=== PATIENT | male | born 1945 | race Caucasian/White ===

== ENCOUNTER 2020-04-20 06:49 | Outpatient (CLI) | payer MEDICARE, BC ==
[2020-04-21 09:25] LABS: SARS-CoV-2 MS2 Positive; SARS-CoV-2 N Gene Negative; SARS-CoV-2 S Gene Negative; SARS-CoV-2 by NAA Not Detected (NotDetected); SARS-CoV-2 orf1ab Negative
== END 2020-04-20 06:50 | disposition home or self-care (01) ==
LOC: LABBT 06:49
PROVIDERS: ATTEND Ophthalmology Retina Specialist
DX: Z01.812 Encounter for preprocedural laboratory examination (principal); Z20.828 Contact with and (suspected) exposure to other viral communicable diseases
CPT/HCPCS: 87635; U0003

== ENCOUNTER 2020-04-23 07:16 | Day surgery (SDC) | payer MEDICARE, BC ==
[2020-04-22 12:33] VITALS: BMI 28.2
[2020-04-23] MEDS ORDERED: Cyclopentolate 1% Opth Drop 2 ML BOT ONE (07:43)
[2020-04-23] MEDS ORDERED: Phenylephrine 2.5% Ophth Soln 5 ML BOT ONE (07:43)
[2020-04-23] MEDS ORDERED: Bupivacaine PF 0.75% SDV 10 ML ONE (09:20)
[2020-04-23] MEDS ORDERED: Lidocaine 4% PF 5 ML AMP ONE (09:20)
[2020-04-23] MEDS ORDERED: Triamcinolone 40 MG/ML VIAL ONE (09:20)
[2020-04-23] MEDS ORDERED: CEFAZOLIN 1 GM VIAL ONE (09:20)
[2020-04-23] MEDS ORDERED: Maxitrol 0.1% Opth Oint 3.5 GM TUBE ONE (09:20)
[2020-04-23] MEDS ORDERED: PROPOFOL 200 MG/20 ML VIAL ONE (09:20)
[2020-04-23] MEDS ORDERED: Lidocaine 1% PF 5 ML VIAL ONE (09:20)
[2020-04-23] MEDS ORDERED: Midazolam HCl 2 mg/2 ml Vial ONE (09:22)
[2020-04-23] MEDS ORDERED: Fentanyl 100 MCG/2 ML VIAL ONE (09:22)
--- NOTE | 2020-04-24 13:48 | OP ---
DATE OF PROCEDURE: 04/23/2020 PREOPERATIVE DIAGNOSES: 1. Glaucoma, right eye. 2. Central retinal vein occlusion, right eye. PROCEDURES PERFORMED: Tube shunt, scleral patch graft, pars plana vitrectomy, panretinal photocoagulation, all right eye. ANESTHESIA: Local with monitored anesthesia care. DESCRIPTION OF PROCEDURE: The patient was identified in the preoperative holding area. Appropriate informed consent for the planned surgical procedure on the right eye had been obtained. The patient was transported to the operative suite and appropriate cardiopulmonary monitoring was established. Local anesthesia was obtained using retrobulbar modified Van Lint lid block using 50:50 mixture of 4% lidocaine and 0.75% bupivacaine. The patient was prepped and draped in usual sterile manner for ophthalmic surgery on the right eye. Lid speculum was placed in the right eye. A 25-gauge trocar was placed in conjunctiva and sclera superotemporally, inferotemporally, and supranasally. An FP7 tube shunt was placed supratemporally and fixated in place 14 mm posterior to the limbus using 5-0 Mersilene suture. Light pipe vitreous cutter was inserted into the eye. Core vitrectomy was performed. Posterior hyaloid face was elevated and peeled into the periphery. Panretinal photocoagulation was placed into all non-macular areas of the retina. The tube was introduced into the sclerotomy site 5 mm posterior to the limbus superotemporally and fixated in place with 7-0 Vicryl suture. Tutoplast graft was placed over the tube insertion site. Tube was noted to be draining well. Conjunctiva was closed with 6-0 plain gut suture. Retrobulbar Kenalog sequential Ancef was placed. Antibiotic ointment was placed. Eye was patched and shielded. The patient was taken to postop recovery unit in good condition having suffered no immediate perioperative complication. The patient was instructed to keep patch shield on, avoid lifting or bending. Followup appointment with Dr. Camara. Job ID: [id number]
== END 2020-04-23 11:09 | disposition home or self-care (01) ==
LOC: SDC 07:16
PROVIDERS: ATTEND Ophthalmology Retina Specialist
PROC: 08T43ZZ Resection of Right Vitreous, Percutaneous Approach (ICD-10-PCS; principal; 2020-04-23)
PROC: 08QE3ZZ Repair Right Retina, Percutaneous Approach (ICD-10-PCS; 2020-04-23)
PROC: 08123J4 Bypass Right Anterior Chamber to Sclera with Synthetic Substitute, Percutaneous Approach (ICD-10-PCS; 2020-04-23)
DX: H40.2210 Chronic angle-closure glaucoma, right eye, stage unspecified (principal); H43.11 Vitreous hemorrhage, right eye; E78.5 Hyperlipidemia, unspecified; I25.10 Atherosclerotic heart disease of native coronary artery without angina pectoris; I48.91 Unspecified atrial fibrillation; Z79.01 Long term (current) use of anticoagulants; Z79.84 Long term (current) use of oral hypoglycemic drugs; Z79.899 Other long term (current) drug therapy; Z86.73 Personal history of transient ischemic attack (TIA), and cerebral infarction without residual deficits; Z91.012 Allergy to eggs; Z95.1 Presence of aortocoronary bypass graft
CPT/HCPCS: 66180; 67040; L8612; J0690; J2001; J2250; J2704; J3010; J3301; J3490

== ENCOUNTER 2020-10-21 17:47 | Inpatient (IN) | payer MEDICARE, BC ==
[2020-10-21 20:08] VITALS: BMI 26.2
[2020-10-21] MEDS ORDERED: Dextrose 5% in Water 1,000 ML IV PRN (21:02)
[2020-10-21] MEDS ORDERED: hydrALAZINE 20 MG/ML VIAL SLOW IVP PRN (21:02)
[2020-10-21] MEDS ORDERED: Morphine 2 MG/ML VIAL SLOW IVP PRN (21:02)
[2020-10-21] MEDS ORDERED: Ondansetron PF 4 MG/2 ML Vial IVP PRN (21:02)
[2020-10-21] MEDS ORDERED: Dextrose 50% Abboject 50 ML SYRINGE SLOW IVP PRN (21:02)
[2020-10-21] MEDS ORDERED: Insulin Regular 300 UNITS/3 ML VIAL SC PRN (21:02)
[2020-10-21 21:20] LABS: #Lymphocytes 1.1 thou/uL (1.20-3.40); #Monocytes 0.7 thou/uL (0.11-0.59); #Neutrophils 13.5 thou/uL (1.40-6.50); %Eosinophils 0.3 % (0.0-10.0); %Lymphocytes 7.4 % (21.0-51.0); %Monocytes 4.6 % (0.0-10.0); %Neutrophils 87.7 % (42.0-75.0); Hemoglobin 14.1 g/dL (14.0-18.0); Mean Corpuscular Hemoglobin 30.9 pg (27.0-31.0); Mean Platelet Volume 7.6 fL (7.4-10.4); Platelet Count 308 thou/uL (130-400); RBC Distribution Width 12.6 % (11.5-14.5); Red Blood Cell (RBC) Count 4.55 mill/uL (4.70-6.10); White Blood Cell (WBC) Count 15.4 thou/uL (4.8-10.8)
[2020-10-21 21:42] LABS: ALT (SGPT) 26 U/L (8-55); AST (SGOT) 30 U/L (5-34); Albumin 3.9 g/dL (3.4-4.8); Alkaline Phosphatase 117 U/L (40-110); Anion Gap 15 mmol/L (10-20); BUN (Urea Nitrogen) 24 mg/dL (8.4-25.7); Bilirubin, Direct 0.5 mg/dL (0.1-0.3); Bilirubin, Total 1.1 mg/dL (0.2-1.2); Calc. Creatinine Clearance 72 mL/min (70-130); Calcium 9.2 mg/dL (7.8-10.44); Carbon Dioxide 24 mmol/L (23-31); Chloride 105 mmol/L (98-107); Glucose 201 mg/dL (83-110); Magnesium 2.1 mg/dL (1.6-2.6); Phosphorus 3.7 mg/dL (2.3-4.7); Potassium 4.7 mmol/L (3.5-5.1); Protein, Total 7.7 g/dL (5.8-8.1); Sodium 139 mmol/L (136-145)
[2020-10-21] MEDS: Gabapentin 300 MG CAP PO SCH (22:20)
[2020-10-21] MEDS: Docusate 100 MG CAP PO SCH (22:20)
[2020-10-21] MEDS: Atorvastatin Calcium 40 MG TAB PO SCH (22:20)
[2020-10-21] MEDS: Folic Acid 1 MG TAB PO SCH (22:20)
[2020-10-21] MEDS: Carvedilol 3.125 MG TAB PO SCH (22:20)
[2020-10-21] MEDS: HumaLOG 300 UNITS/3 ML VIAL SC PRN (23:59)
[2020-10-22] MEDS: Lactated Ringer's 1,000 ML IV SCH (00:05)
[2020-10-22 00:09] LABS: Bacteria/HPF None Seen HPF (None Seen); Bilirubin Negative (Negative); Blood, Urine Negative (Negative); Clarity Clear (Clear); Glucose, Urine (Dipstick) Greater than 1000 mg/dL (Negative); Ketone, Urine 20 mg/dL (Negative); Leukocyte Negative Leu/uL (Negative); Nitrite Negative (Negative); Protein, Urine (Dipstick) 10 mg/dL (Neg-Trace); RBC/HPF None Seen HPF (0-3); Specific Gravity, Urine 1.029 (1.002-1.036); Squamous Epithelial None Seen HPF (0-3); Urobilinogen Normal mg/dL (Less than 2); WBC/HPF 0-3 HPF (0-3)
[2020-10-22 00:20] LABS: Urine Culture Reflex No No
[2020-10-22 01:08] LABS: SARS-CoV-2 PCR by NAA Not Detected (NotDetected)
[2020-10-22] MEDS ORDERED: Morphine 4 MG/ML VIAL SLOW IVP PRN ×2 (05:17→18:22)
[2020-10-22 06:36] LABS: #Eosinphils 0.1 thou/uL (0.0-0.7); #Lymphocytes 1.8 thou/uL (1.20-3.40); #Neutrophils 9.4 thou/uL (1.40-6.50); %Basophils 0.4 % (0.0-1.0); %Eosinophils 0.7 % (0.0-10.0); %Lymphocytes 14.3 % (21.0-51.0); %Neutrophils 76.6 % (42.0-75.0); Mean Corpuscular HGB CONC 32.5 g/dL (32.0-36.0); Mean Corpuscular Hemoglobin 29.5 pg (27.0-31.0); Mean Corpuscular Volume 90.8 fL (78.0-98.0); Mean Platelet Volume 8.1 fL (7.4-10.4); Platelet Count 318 thou/uL (130-400); RBC Distribution Width 12.7 % (11.5-14.5); Red Blood Cell (RBC) Count 4.41 mill/uL (4.70-6.10); White Blood Cell (WBC) Count 12.3 thou/uL (4.8-10.8)
[2020-10-22] MEDS ORDERED: Empagliflozin 10 MG TAB PO SCH (09:00)
[2020-10-22] MEDS: Carvedilol 3.125 MG TAB PO SCH (09:56)
[2020-10-22] MEDS: Docusate 100 MG CAP PO SCH ×2 (09:58→21:57)
[2020-10-22] MEDS: Famotidine/PF 20 mg/2ml Vial SLOW IVP SCH ×2 (09:59→21:24)
[2020-10-22] MEDS: Gabapentin 300 MG CAP PO SCH ×3 (09:59→21:11)
[2020-10-22] MEDS: Multivit, Therapeutic 1 TAB PO SCH (10:01)
[2020-10-22] MEDS: Polyethylene Glycol 3350 17 GM Packet PO SCH ×2 (10:01→10:40)
[2020-10-22] MEDS: Senokot S 8.6-50 MG TAB PO SCH ×3 (10:02→21:57)
[2020-10-22] MEDS ORDERED: CEFAZOLIN 2 GM in Premix Bag 1 BAG IVPB SCH (10:45)
[2020-10-22] MEDS ORDERED: Melatonin 3 MG TAB PO PRN (18:15)
[2020-10-22] MEDS ORDERED: traMADol HCl 50 MG TAB PO PRN (19:49)
[2020-10-22] MEDS: Cholecalciferol 1,000 UNITS (25 MCG) TAB PO SCH (21:10)
[2020-10-22] MEDS: Folic Acid 1 MG TAB PO SCH (21:11)
[2020-10-22] MEDS: Atorvastatin Calcium 40 MG TAB PO SCH (21:11)
[2020-10-22] MEDS: Ibuprofen 200 MG TAB PO SCH (21:11)
[2020-10-22] MEDS: Latanoprost 0.005% Ophth Soln 2.5 ml Bottle EA EYE SCH (21:12)
[2020-10-22] MEDS: traMADol HCl 50 MG TAB PO SCH (21:12)
[2020-10-23] MEDS: Acetaminophen 325 MG TAB PO SCH ×4 (01:01→18:25)
[2020-10-23] MEDS: traMADol HCl 50 MG TAB PO SCH ×4 (03:44→20:54)
[2020-10-23] MEDS: Lactated Ringer's 1,000 ML IV SCH (05:39)
[2020-10-23] MEDS: Ibuprofen 200 MG TAB PO SCH ×3 (05:39→20:57)
[2020-10-23 07:23] LABS: #Basophils 0.1 thou/uL (0.0-0.2); #Eosinphils 0.4 thou/uL (0.0-0.7); #Lymphocytes 2.1 thou/uL (1.20-3.40); #Monocytes 1.1 thou/uL (0.11-0.59); #Neutrophils 9.7 thou/uL (1.40-6.50); %Basophils 0.5 % (0.0-1.0); %Lymphocytes 15.7 % (21.0-51.0); %Monocytes 8.2 % (0.0-10.0); %Neutrophils 72.7 % (42.0-75.0); Hemoglobin 11.7 g/dL (14.0-18.0); Mean Corpuscular HGB CONC 33.9 g/dL (32.0-36.0); Mean Corpuscular Hemoglobin 30.7 pg (27.0-31.0); Mean Corpuscular Volume 90.7 fL (78.0-98.0); Mean Platelet Volume 7.9 fL (7.4-10.4); Platelet Count 257 thou/uL (130-400); RBC Distribution Width 12.5 % (11.5-14.5); Red Blood Cell (RBC) Count 3.79 mill/uL (4.70-6.10); White Blood Cell (WBC) Count 13.3 thou/uL (4.8-10.8)
[2020-10-23] MEDS ORDERED: Fentanyl 100 MCG/2 ML VIAL ONE ×2 (07:24→09:45)
[2020-10-23 07:44] LABS: Anion Gap 13 mmol/L (10-20); BUN (Urea Nitrogen) 31 mg/dL (8.4-25.7); Calc. Creatinine Clearance 74 mL/min (70-130); Calcium 8.6 mg/dL (7.8-10.44); Carbon Dioxide 24 mmol/L (23-31); Chloride 106 mmol/L (98-107); Glucose 108 mg/dL (83-110); Potassium 4.1 mmol/L (3.5-5.1); Sodium 139 mmol/L (136-145)
[2020-10-23] MEDS: Loratadine 10 MG TAB PO SCH (08:42)
[2020-10-23] MEDS: Senokot S 8.6-50 MG TAB PO SCH ×2 (08:42→20:55)
[2020-10-23] MEDS: Docusate 100 MG CAP PO SCH ×2 (08:42→20:55)
[2020-10-23] MEDS: Gabapentin 300 MG CAP PO SCH ×3 (08:42→20:56)
[2020-10-23] MEDS: Famotidine/PF 20 mg/2ml Vial SLOW IVP SCH ×2 (08:42→20:56)
[2020-10-23] MEDS: Polyethylene Glycol 3350 17 GM Packet PO SCH (08:42)
[2020-10-23] MEDS: Multivit, Therapeutic 1 TAB PO SCH (08:42)
[2020-10-23] MEDS ORDERED: Promethazine HCl 25 MG/ML VIAL IM PRN (10:14)
[2020-10-23] MEDS ORDERED: Promethazine HCl 25 MG/ML VIAL SLOW IVP PRN (10:14)
[2020-10-23] MEDS ORDERED: Ondansetron HCl/PF 4 MG/2 ML Vial IVP PRN (10:14)
[2020-10-23] MEDS: CEFAZOLIN 2 GM in Premix Bag 1 BAG IVPB SCH (18:26)
[2020-10-23] MEDS: HumaLOG 300 UNITS/3 ML VIAL SC PRN ×2 (18:38→21:18)
[2020-10-23] MEDS: Cholecalciferol 1,000 UNITS (25 MCG) TAB PO SCH (20:55)
[2020-10-23] MEDS: Latanoprost 0.005% Ophth Soln 2.5 ml Bottle EA EYE SCH (20:55)
[2020-10-23] MEDS: Atorvastatin Calcium 40 MG TAB PO SCH (20:55)
[2020-10-23] MEDS: Folic Acid 1 MG TAB PO SCH (20:56)
[2020-10-23] MEDS: Carvedilol 3.125 MG TAB PO SCH (20:59)
[2020-10-24] MEDS: Acetaminophen 325 MG TAB PO SCH ×5 (00:23→23:29)
[2020-10-24] MEDS: Lactated Ringer's 1,000 ML IV SCH (02:26)
[2020-10-24] MEDS: CEFAZOLIN 2 GM in Premix Bag 1 BAG IVPB SCH ×2 (02:26→11:43)
[2020-10-24] MEDS: traMADol HCl 50 MG TAB PO SCH ×4 (02:27→19:51)
[2020-10-24] MEDS: HumaLOG 300 UNITS/3 ML VIAL SC PRN ×3 (06:16→16:20)
[2020-10-24] MEDS: Ibuprofen 200 MG TAB PO SCH ×3 (06:16→19:52)
[2020-10-24] MEDS: Multivit, Therapeutic 1 TAB PO SCH (09:51)
[2020-10-24] MEDS: Senokot S 8.6-50 MG TAB PO SCH ×2 (09:51→19:50)
[2020-10-24] MEDS: Carvedilol 3.125 MG TAB PO SCH ×2 (09:51→19:49)
[2020-10-24] MEDS: Famotidine/PF 20 mg/2ml Vial SLOW IVP SCH ×2 (09:52→19:52)
[2020-10-24] MEDS: Loratadine 10 MG TAB PO SCH (09:52)
[2020-10-24] MEDS: Polyethylene Glycol 3350 17 GM Packet PO SCH (09:52)
[2020-10-24] MEDS: Docusate 100 MG CAP PO SCH ×2 (09:52→19:50)
[2020-10-24] MEDS: Gabapentin 300 MG CAP PO SCH ×3 (09:52→19:51)
[2020-10-24 10:52] LABS: #Basophils 0.1 thou/uL (0.0-0.2); #Eosinphils 0.3 thou/uL (0.0-0.7); #Lymphocytes 2.8 thou/uL (1.20-3.40); #Monocytes 1.1 thou/uL (0.11-0.59); #Neutrophils 10.4 thou/uL (1.40-6.50); %Basophils 0.4 % (0.0-1.0); %Eosinophils 1.8 % (0.0-10.0); %Lymphocytes 19.1 % (21.0-51.0); %Monocytes 7.6 % (0.0-10.0); %Neutrophils 71.1 % (42.0-75.0); Hemoglobin 10.4 g/dL (14.0-18.0); Mean Corpuscular HGB CONC 33.4 g/dL (32.0-36.0); Mean Corpuscular Hemoglobin 30.3 pg (27.0-31.0); Mean Corpuscular Volume 90.7 fL (78.0-98.0); Mean Platelet Volume 8.1 fL (7.4-10.4); Platelet Count 279 thou/uL (130-400); RBC Distribution Width 12.5 % (11.5-14.5); Red Blood Cell (RBC) Count 3.43 mill/uL (4.70-6.10); White Blood Cell (WBC) Count 14.6 thou/uL (4.8-10.8)
[2020-10-24 15:45] LABS: Anion Gap 15 mmol/L (10-20); BUN (Urea Nitrogen) 40 mg/dL (8.4-25.7); Calc. Creatinine Clearance 58 mL/min (70-130); Calcium 8.6 mg/dL (7.8-10.44); Carbon Dioxide 23 mmol/L (23-31); Chloride 104 mmol/L (98-107); Glucose 176 mg/dL (83-110); Magnesium 2.2 mg/dL (1.6-2.6); Phosphorus 3.2 mg/dL (2.3-4.7); Sodium 138 mmol/L (136-145)
[2020-10-24] MEDS: Folic Acid 1 MG TAB PO SCH (19:51)
[2020-10-24] MEDS: Cholecalciferol 1,000 UNITS (25 MCG) TAB PO SCH (19:51)
[2020-10-24] MEDS: Atorvastatin Calcium 40 MG TAB PO SCH (19:51)
[2020-10-24] MEDS: Latanoprost 0.005% Ophth Soln 2.5 ml Bottle EA EYE SCH (19:52)
[2020-10-25] MEDS: traMADol HCl 50 MG TAB PO SCH ×3 (03:34→14:28)
[2020-10-25] MEDS: Acetaminophen 325 MG TAB PO SCH ×3 (06:17→17:32)
[2020-10-25] MEDS: Ibuprofen 200 MG TAB PO SCH ×3 (06:18→21:42)
[2020-10-25] MEDS: Polyethylene Glycol 3350 17 GM Packet PO SCH (08:31)
[2020-10-25] MEDS: Senokot S 8.6-50 MG TAB PO SCH ×2 (08:32→20:10)
[2020-10-25] MEDS: Docusate 100 MG CAP PO SCH ×2 (08:32→20:09)
[2020-10-25] MEDS: Gabapentin 300 MG CAP PO SCH ×2 (08:33→14:27)
[2020-10-25] MEDS: Loratadine 10 MG TAB PO SCH (08:33)
[2020-10-25] MEDS: Multivit, Therapeutic 1 TAB PO SCH (08:33)
[2020-10-25] MEDS: Famotidine/PF 20 mg/2ml Vial SLOW IVP SCH ×2 (08:33→20:11)
[2020-10-25] MEDS: Carvedilol 3.125 MG TAB PO SCH ×2 (08:35→20:13)
[2020-10-25] MEDS: HumaLOG 300 UNITS/3 ML VIAL SC PRN ×2 (12:30→17:31)
[2020-10-25] MEDS ORDERED: RisperDAL M-TAB 1 MG TAB SL SCH (18:45)
[2020-10-25] MEDS: Apixaban 5 MG TAB PO SCH (20:09)
[2020-10-25] MEDS: Folic Acid 1 MG TAB PO SCH (20:10)
[2020-10-25] MEDS: Atorvastatin Calcium 40 MG TAB PO SCH (20:10)
[2020-10-25] MEDS: Cholecalciferol 1,000 UNITS (25 MCG) TAB PO SCH (20:12)
[2020-10-25] MEDS: Latanoprost 0.005% Ophth Soln 2.5 ml Bottle EA EYE SCH (20:17)
[2020-10-25] MEDS ORDERED: Hydrocortisone Sod Succ/PF 100 mg/2 ml Vial IVP SCH (21:15)
[2020-10-25] MEDS ORDERED: Tamsulosin HCl 0.4 MG CAP PO SCH (22:15)
[2020-10-26] MEDS: Acetaminophen 325 MG TAB PO SCH ×4 (00:19→18:08)
[2020-10-26] MEDS: Hydrocortisone Sod Succ/PF 100 mg/2 ml Vial IVP SCH ×3 (02:48→15:10)
[2020-10-26] MEDS: Ibuprofen 200 MG TAB PO SCH ×2 (04:57→14:57)
[2020-10-26] MEDS: HumaLOG 300 UNITS/3 ML VIAL SC PRN ×2 (05:13→15:06)
[2020-10-26 05:19] LABS: Hemoglobin 10.8 g/dL (14.0-18.0); Platelet Count 256 thou/uL (130-400)
[2020-10-26] MEDS ORDERED: Clopidogrel Bisulfate 75 MG TAB PO SCH (09:00)
[2020-10-26] MEDS: Polyethylene Glycol 3350 17 GM Packet PO SCH (09:14)
[2020-10-26] MEDS: Senokot S 8.6-50 MG TAB PO SCH (09:15)
[2020-10-26] MEDS: Multivit, Therapeutic 1 TAB PO SCH (09:15)
[2020-10-26] MEDS: Carvedilol 3.125 MG TAB PO SCH (09:15)
[2020-10-26] MEDS: Loratadine 10 MG TAB PO SCH (09:15)
[2020-10-26] MEDS: Docusate 100 MG CAP PO SCH (09:15)
[2020-10-26] MEDS: Apixaban 5 MG TAB PO SCH (09:15)
[2020-10-26 16:05] VITALS: BP 138/72; TEMP 97.9
[2020-10-26] MEDS ORDERED: Tamsulosin HCl 0.4 MG CAP PO SCH (21:00)
== END 2020-10-26 18:14 | DRG 481 ==
LOC: SURG A 17:47
PROVIDERS: ADMIT Surgery; ATTEND Surgery
PROC: 0QH704Z Insertion of Internal Fixation Device into Left Upper Femur, Open Approach (ICD-10-PCS; principal; 2020-10-23)
DX: S72.22XA Displaced subtrochanteric fracture of left femur, initial encounter for closed fracture (principal); F05 Delirium due to known physiological condition; Z20.822 Contact with and (suspected) exposure to COVID-19; Z23 Encounter for immunization; E11.621 Type 2 diabetes mellitus with foot ulcer; L97.529 Non-pressure chronic ulcer of other part of left foot with unspecified severity; I25.10 Atherosclerotic heart disease of native coronary artery without angina pectoris; E11.51 Type 2 diabetes mellitus with diabetic peripheral angiopathy without gangrene; E11.319 Type 2 diabetes mellitus with unspecified diabetic retinopathy without macular edema; I48.0 Paroxysmal atrial fibrillation; I95.89 Other hypotension; W18.09XA Striking against other object with subsequent fall, initial encounter; Y92.009 Unspecified place in unspecified non-institutional (private) residence as the place of occurrence of the external cause; Z95.1 Presence of aortocoronary bypass graft; Z95.820 Peripheral vascular angioplasty status with implants and grafts; Z86.73 Personal history of transient ischemic attack (TIA), and cerebral infarction without residual deficits; Z79.899 Other long term (current) drug therapy; Z79.02 Long term (current) use of antithrombotics/antiplatelets; Z79.01 Long term (current) use of anticoagulants; Z79.84 Long term (current) use of oral hypoglycemic drugs
CPT/HCPCS: 36415; 36416; 70450; 71045; 72170; 76000; 80048; 80053; 81001; 82306; 82533; 82565; 82746; 83735; 84100; 84484; 85014; 85018; 85025; 85049; 85610; 85730; 87635; 90471; 90732; 93005; 93306; 96374; C1713; G0009; J0690; J1720; J1815; J2270; J2405; J3010; S0028; U0003; U0005